=== PATIENT | male | born 1970 | race Caucasian/White ===

== ENCOUNTER 2017-05-05 08:05 | Outpatient (CLI) | payer BC ==
--- NOTE | 2017-05-05 10:19 | MRI ---
EXAM: MRI LUMBAR SPINE WITH AND WITHOUT CONTRAST: HISTORY: Right hip pain. COMPARISON: None. TECHNIQUE: Lumbar spine MRI is performed with and without intravenous Gadolinium administration. Multisequentia l, multiplanar imaging is performed. FINDINGS: Appropriate T1 marrow signal intensity of the lumbar vertebrae. Lumbar spine vertebral body height i s maintained. There is no fracture. There is an intrinsic T1 and T2 hyperintense lesion at the L3 l evel compatible with small hemangioma. Symmetric signal intensity of the psoas muscles. Appropriate signal intensity of the visualized ashley d organs. A small amount of nonspecific right perinephric fluid. Just inferior to the conus medullaris, there is a T2 mixed-signal intensity lesion with components of T2 hyperintensity. The T2 hyperintense component measures 1.4 cm anterior posterior x 1.6 cm mediol ateral x 2.7 cm craniocaudal. On the postcontrast images, there is enhancement associated along the periphery of the cystic component. The more solid component which is just inferior to the cystic com ponent has slightly heterogeneous enhancement. Overall, this mass measures 5.1 cm craniocaudal x 2.0 cm mediolateral x 1.8 cm anterior posterior. The mass abuts the conus and displaces nerve roots. T11-T12 and T12-L1: No high-grade central canal stenosis. No high-grade foraminal narrowing. L1-L2: No high-grade central canal stenosis. Neural foramen are patent. L2-L3: Adequate disk hydration. No significant central canal stenosis. Neural foramen are patent. L3-L4: Adequate disk hydration. No significant central canal stenosis. Foramen are patent. L4-L5: Adequate disk hydration. No significant central canal stenosis. Foramen are patent. L5-S1: Adequate disk hydration. No significant central canal stenosis. Neural foramen are patent. IMPRESSION: Intradural mass just inferior to the conus medullaris. Mass appears to abut the conus and displace ne rve roots. 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 Differential considerations include astrocytoma, epe ndymoma, or pterygoid glioma. Results of the study discussed with Dr. Blanco 05/05/17 at 9:55 a.m. JUAN CHOUDHURY POS: [facility]
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
== END 2017-05-05 08:06 | disposition home or self-care (01) ==
LOC: MRI 08:05
PROVIDERS: ATTEND Anesthesiology Pain Medicine
DX: M53.3 Sacrococcygeal disorders, not elsewhere classified (principal); M47.812 Spondylosis without myelopathy or radiculopathy, cervical region; M48.02 Spinal stenosis, cervical region; M99.51 Intervertebral disc stenosis of neural canal of cervical region; M89.9 Disorder of bone, unspecified
CPT/HCPCS: 72141; 72148

== ENCOUNTER 2017-06-17 09:00 | Outpatient (CLI) | payer BC ==
[2017-06-17 16:56] LABS: Hemoglobin 16.2 g/dL (14.0-18.0); Mean Corpuscular HGB CONC 34.5 g/dL (32.0-36.0); Mean Corpuscular Hemoglobin 31.5 pg (27.0-31.0); Mean Corpuscular Volume 91.2 fl (80.0-94.0); Mean Platelet Volume 7.2 fL (7.4-10.4); Platelet Count 285 thou/uL (130-400); RBC Distribution Width 11.8 % (11.5-14.5); Red Blood Cell (RBC) Count 5.14 mill/uL (4.70-6.10); White Blood Cell (WBC) Count 9.9 thou/uL (4.8-10.8)
[2017-06-17 17:06] LABS: INR-International Normal Ratio 1.1; Prothrombin Time 13.8 SEC (12.0-14.7)
== END 2017-06-17 09:01 | disposition home or self-care (01) ==
LOC: LABBT 09:00
PROVIDERS: ATTEND Neurological Surgery
DX: Z01.812 Encounter for preprocedural laboratory examination (principal); D33.4 Benign neoplasm of spinal cord
CPT/HCPCS: 85027; 85610; 85730; 93005; 93010

== ENCOUNTER 2017-06-17 16:00 | Inpatient (IN) | payer BC ==
--- NOTE | 2017-06-17 06:51 | HP ---
HISTORY OF PRESENT ILLNESS: Mr. Powers has been a patient of ours in the past for an evaluation of neck discomfort. He returns today with a new discovery of a lesion in the thoracolumbar spinal canal. He first reported back pain to his physician about 5-6 months ago and with physical therapy, things were improving. Unfortunately, the pain never went away and he was sent to Dr. Blanco for injection. The lumbar spine MRI revealed a lesion just up at the conus medullaris that led to an urgent referral to [facility]. Mr. Powers does not have radicular pain. There is no subjective numbness. There is no incontinence. He does not have a report of erectile dysfunction. The legs work well. He is ambulatory. The back pain seems to be worse when sitting and especially on the toilet. He stands for work and this feels much better. REVIEW OF SYSTEMS: A 10-point review of systems is negative, unless stated in the above HPI. PAST MEDICAL HISTORY: Hypertension, heartburn, and reflux. PAST SURGICAL HISTORY: The patient has an exploratory laparotomy, appendectomy in 2004, and sebaceous cyst removal. FAMILY HISTORY: Father is alive at 67 years old. Mother is alive at 65 years old, brain atrophy, diagnosed with hypertension. Siblings are alive. Children are alive. Son is alive. Daughter is alive. Paternal grandfather has , diagnosed with hypertension. Paternal grandmother , diagnosed with hypertension. SOCIAL HISTORY: The patient is a nonsmoker. He uses alcohol, no illicit drug use. 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 He is an ex-tobacco user, he quit 8 years ago. MEDICATIONS: 1. Montelukast sodium 10 mg tablet 1 tablet in the evening orally once a day. 2. Cyclobenzaprine 10 mg tablet 1 tablet as needed orally 3 times a day. 3. Hydrocodone/acetaminophen 7.5/325 mg tablet. 4. Tylenol Extra Strength 500 mg tablet 2 tablets as needed orally q.6 hours. 5. Ibuprofen 200 mg tablet 1 tablet with food or milk as needed orally 3 times a day. 6. Amlodipine/valsartan 5/40 mg tablet 1 tablet orally once a day. 7. Etodolac 500 mg tablet 1 tablet with food orally once a day. ALLERGIES: No known drug allergies. PHYSICAL EXAMINATION: NEUROLOGIC: Cranial nerves are intact. Cerebellar exam: There is no truncal ataxia. Gait and station are normal. Toe heel tandem walking is performed smoothly without weakness or apraxia. Motor exam: There is normal strength in the iliopsoas, quadriceps, hamstrings, gastroc, and toe flexors. Mild left anterior tib and EHL weakness. Sensory exam, some right L2 and right L5 altered sensation on the left. Reflex exam, both knees, brisk on the left, normal on the right. Ankle jerk brisk, 1-2 beat clonus on the right. IMAGING: MRI shows a contrast enhancing lesion below conus at L1. Cystic degenerations in the center of the lesion nerve roots to the right. Conus pushed upward and filum seems tethered. ASSESSMENT: Benign neoplasm of the spinal cord. Dr. Shah discussed laminectomy T12-L2 with tumor resection. The risks, benefits, alternatives, and the possible complication of surgery and benefits were discussed with the patient. The patient is fully aware of the risks, and he wants to proceed with the surgery. MERI
[2017-06-17 16:50] VITALS: BMI 34.1
[2017-06-26] MEDS ORDERED: CEFAZOLIN/Water 2 GM/20 ML SYRINGE ONE (06:11)
[2017-06-26] MEDS ORDERED: Thrombin 5000 UNITS/5 ML VIAL ONE ×3 (06:36→10:41)
[2017-06-26] MEDS ORDERED: Sodium Chloride 0.9% 20 ML ONE (06:36)
[2017-06-26] MEDS ORDERED: Bupivacaine/Epinephrine 0.25% 30 ML VIAL ONE (06:36)
[2017-06-26] MEDS ORDERED: Fentanyl 100 MCG/2 ML VIAL ONE ×5 (06:42→12:46)
[2017-06-26] MEDS ORDERED: Midazolam HCl 2 mg/2 ml Vial ONE (06:42)
[2017-06-26] MEDS ORDERED: Propofol 500 MG/50 ML VIAL ONE ×4 (07:22→11:29)
[2017-06-26] MEDS ORDERED: Phenylephrine 10 MG/NS 250 ML 0 ML ONE (08:30)
[2017-06-26] MEDS ORDERED: CEFAZOLIN 1 GM VIAL ONE (10:41)
[2017-06-26] MEDS ORDERED: Lidocaine 1% PF 5 ML VIAL ONE (10:41)
[2017-06-26] MEDS ORDERED: PROPOFOL 200 MG/20 ML VIAL ONE (10:41)
[2017-06-26] MEDS ORDERED: PHENYLEPHRINE-NS 100 MCG/ML 10 ML SYRINGE ONE (10:41)
[2017-06-26] MEDS ORDERED: Sterile Water 10 ML VIAL ONE (10:41)
[2017-06-26] MEDS ORDERED: Glycopyrrolate 0.2 MG/ML 5 ML SYRINGE ONE (10:41)
[2017-06-26] MEDS ORDERED: ePHEDrine/0.9% NaCl/PF SYRINGE 50 mg/10 ml ONE (10:41)
[2017-06-26] MEDS ORDERED: Dexamethasone 20 MG/5 ML VIAL ONE (10:41)
[2017-06-26] MEDS ORDERED: Phenylephrine 10 MG/NS 250 ML 250 ML ONE (11:38)
[2017-06-26] MEDS: Sodium Chloride 0.9% 1,000 ML IV SCH (12:00)
[2017-06-26] MEDS ORDERED: Acetaminophen/Codeine 30-300mg Tablet PO PRN (12:30)
[2017-06-26] MEDS ORDERED: Morphine 4 MG/ML Carpuject SLOW IVP PRN ×2 (12:30)
[2017-06-26] MEDS ORDERED: Milk Of Magnesia 30 ML UDCUP PO PRN (12:30)
[2017-06-26] MEDS ORDERED: Ondansetron HCl/PF 4 MG/2 ML Vial IVP PRN ×2 (12:30→12:36)
[2017-06-26] MEDS ORDERED: Promethazine HCl 25 MG/ML VIAL IM PRN (12:36)
[2017-06-26] MEDS ORDERED: Promethazine HCl 25 MG/ML VIAL SLOW IVP PRN (12:36)
[2017-06-26] MEDS ORDERED: HYDROmorphone 2 MG/ML VIAL SLOW IVP PRN (12:36)
[2017-06-26] MEDS ORDERED: Meperidine HCl/PF 25 MG/ML VIAL SLOW IVP PRN (12:36)
[2017-06-26] MEDS ORDERED: HYDROmorphone 0.5 MG/0.5 ML SYRINGE ONE ×2 (13:10→13:31)
[2017-06-26] MEDS: Cyclobenzaprine 10 MG TAB PO PRN ×2 (15:42→23:31)
[2017-06-26] MEDS: Acetaminophen/Codeine 30-300mg Tablet PO PRN ×3 (15:43→23:28)
[2017-06-26] MEDS: CEFAZOLIN/Water 2 GM/20 ML SYRINGE SLOW IVP SCH ×2 (15:46→21:01)
--- NOTE | 2017-06-26 16:21 | OP ---
DATE OF PROCEDURE: 06/26/2017 SURGEON: Darek Shah M.D. [employer] ASSEMBLER: Juarez Diaz PA-C PREOPERATIVE INDICATION: Make diagnosis, prevent neurological deterioration. PREOPERATIVE DIAGNOSIS: Intradural extramedullary lesion at T12-L2. POSTOPERATIVE DIAGNOSIS: Intradural extramedullary lesion at T12 L2. OPERATIVE PROCEDURES: Decompressive laminectomy, T12, L1, L2 durotomy and microsurgical resection of intradural tumor, operating microscope. PREOPERATIVE MEDICATIONS: Ancef 2 grams IV. DRAIN NUMBER: Zero. DRAIN TYPE: None. OPERATIVE DICTATION: The patient was brought to the operating room. General endotracheal anesthesia was induced. The patient was positioned prone on the operating table with his chest and hips suppor josephine by gel-filled chest rolls. Monitoring lines were placed for SSEP, MEP and EMG monitoring during the case. Using a lateral fluoro and radiograph, we planned our incision. The thoracolumbar skin wa s sterilely prepped and draped, and we opened with a 10 blade knife. We controlled bleeding with bip olar and monopolar cautery. We used monopolar cautery to dissect through subcutaneous tissues to the thoracodorsal fascia. We incised the fascia in the midline and reflected the paraspinal muscles off the spinous process and lamina of T12, L1, and L2. A lateral fluoro radiograph confirmed the levels upon which we were operating. We then used Adson and Kerrison rongeurs to remove the entire lamina of T12, L1, and 80% of the superior portion of the lamina of L2. We widened our laminectomy defect u ntil we were flush with the pedicles. We controlled epidural bleeding with gentle bipolar cautery an d waxed the bone edges. We then brought the operating microscope in the field. Under microscopic magnification using microsurgical techniques, we carefully opened the dura. With t he dura open, we could easily visualize the tumor within the area of the cauda equina. We tacked the dural opening to the muscle on either side and then we began our microdissection of the tumor. We c arefully freed it from all the nerve roots. We found it attached superiorly to the bottom of the con us medullaris and inferiorly to the filum terminale. While it is lateral aspect of the tumor, we dis sected free the arachnoid and all nerve roots. We stimulated the attachment superior to the tumor an d the filum terminale inferior, and none of the stimulation of those areas resulted in any EMG activi ty. We carefully stimulated lumbar nerve roots until we could easily identify the right and left L5 motor roots, the right and left S1 motor roots and the sacral roots to the sphincter on either side. These were not part of the attachments of the tumor. We then carefully coagulated between the tumor and the conus and sectioned here sharply. Inferiorly, we coagulated the filum terminale and section ed down. The tumor was removed in a single specimen and sent to pathology. We irrigated copiously w ith bacitracin irrigation and the spinal canal. 100 mL of warm irrigant was used. Hemostasis was ex cellent within the canal. We then closed the dura with 6-0 Prolene in a running fashion. A Valsalva maneuver was administered and there was a small area of CSF egress from one of the tackup suture hol es on the left side. We reinforced this area with a 6-0 Prolene and a pledget of muscle. A second V alsalva was administered and there was no gross CSF leak at all. We irrigated copiously with bacitra madalyn irrigation. We controlled lateral epidural vein with gentle bipolar cautery. We waxed the bone edges once again. We irrigated the wound with bacitracin irrigation and infused local anesthetic in the paraspinal muscles. We applied DuraSeal tissue sealant over a dural closure to reinforce it, and we closed the wound in anatomic layers over vancomycin powder. We applied a sterile dressing. This was a clean case and no contamination.
[2017-06-26] MEDS: traMADol HCl 50 MG TAB PO PRN (20:47)
[2017-06-26] MEDS: Montelukast Sodium 10 mg Tablet PO SCH (20:49)
[2017-06-27] MEDS: Sodium Chloride 0.9% 1,000 ML IV SCH ×4 (03:13→20:03)
--- NOTE | 2017-06-27 07:20 | PRG ---
DATE OF SERVICE: 06/27/2017 SUBJECTIVE: Mr. Powers is a 46-year-old male who I saw in his room this morning. Overnight, his jose manuel l signs have been stable. There have been no new neurologic deficits on exam. He is able to move wi th no focal motor or sensory deficits in his upper or lower extremities. Sensation to the saddle are a is normal. Today, we will advance his diet, he can have a regular diet and would like to see him g et up and ambulate as much as possible as well as urinate and have bowel movement. Yesterday, postop eratively, he had some headaches; however, those are starting to resolve this morning. His pain is w ell controlled with oral pain medication. This morning, we are going to lift his head of bed to 30 d egrees for 2 hours. If he does not develop a headache, he can work with the nurse and ambulate in e ayon. If there are any further questions, please feel free to contact Neurosurgery.
[2017-06-27] MEDS: Amlodipine 5 MG TAB PO SCH (07:30)
[2017-06-27] MEDS: Acetaminophen/Codeine 30-300mg Tablet PO PRN ×5 (07:45→23:49)
[2017-06-27] MEDS: traMADol HCl 50 MG TAB PO PRN ×4 (08:52→22:09)
[2017-06-27] MEDS: Cyclobenzaprine 10 MG TAB PO PRN ×2 (11:33→19:58)
[2017-06-27] MEDS: Fluticasone Propionate Nasal Spray 16 gm Bottle NASAL SCH (18:11)
[2017-06-27] MEDS: Montelukast Sodium 10 mg Tablet PO SCH (19:59)
[2017-06-28] MEDS ORDERED: Polyethylene Glycol 3350 17 GM Packet PO PRN (01:24)
[2017-06-28] MEDS ORDERED: Polyethylene Glycol 3350 17 GM Packet PO SCH (01:30)
[2017-06-28] MEDS: Acetaminophen/Codeine 30-300mg Tablet PO PRN ×3 (04:39→11:44)
[2017-06-28] MEDS: Cyclobenzaprine 10 MG TAB PO PRN ×2 (04:39→12:35)
[2017-06-28] MEDS: Amlodipine 5 MG TAB PO SCH (08:10)
[2017-06-28] MEDS: Fluticasone Propionate Nasal Spray 16 gm Bottle NASAL SCH (08:11)
[2017-06-28] MEDS: traMADol HCl 50 MG TAB PO PRN ×2 (09:45→18:14)
[2017-06-28] MEDS: Sodium Chloride 0.9% 1,000 ML IV SCH ×2 (11:46→20:30)
[2017-06-28] MEDS ORDERED: SOAP SUD ENEMA PR PRN (11:55)
[2017-06-28] MEDS ORDERED: Magnesium Citrate 300 ML BOT PO SCH (12:00)
--- NOTE | 2017-06-28 12:29 | PRG ---
DATE OF SERVICE: 06/28/2017 Mr. Powers is now 2 days postoperative lumbar ependymoma resection with Dr. Shah. He has some mi nimal back pain this morning, but really the biggest complaint is that of abdominal pain from constip ation. He has yet to have a bowel movement since before surgery. He has also had trouble with urina ry retention and a Alvarez was placed again last night. He is in obvious discomfort at bedside right n ow. The plan will be to add mag citrate x1 and then p.r.n. soapsuds enema as needed to help promote bowel movement. I feel as soon as he has a large bowel movement he will likely be able to urinate ea sier and his comfort level will be much better. If we can get him to pass stool and get him to mobil ize more later today he can go home with or without a Alvarez catheter in place.
[2017-06-28] MEDS: Montelukast Sodium 10 mg Tablet PO SCH (20:31)
[2017-06-29] MEDS: Cyclobenzaprine 10 MG TAB PO PRN ×3 (00:29→16:53)
[2017-06-29] MEDS: Sodium Chloride 0.9% 1,000 ML IV SCH ×2 (06:01→15:16)
[2017-06-29] MEDS: Acetaminophen/Codeine 30-300mg Tablet PO PRN ×5 (06:02→20:02)
[2017-06-29] MEDS: Fluticasone Propionate Nasal Spray 16 gm Bottle NASAL SCH (08:58)
[2017-06-29] MEDS: Amlodipine 5 MG TAB PO SCH (08:59)
[2017-06-29] MEDS ORDERED: Magnesium Citrate 300 ML BOT PO PRN (11:00)
[2017-06-29] MEDS: traMADol HCl 50 MG TAB PO PRN (14:12)
--- NOTE | 2017-06-29 16:08 | PRG ---
DATE OF SERVICE: 06/29/2017 Mr. Powers is now postop day #3 following ependymoma resection with Dr. Shah. He still unfortuna tely has not had a significant bowel movement; at least this morning though he has had a small bowel movement and some flatus, which I think is a big improvement from yesterday. He still has some abdom inal pain which is again I think all related to his constipation. We have dialed back his pain medic ations. We will keep his fluids high. He still has the Alvarez in which I think is okay for the time being. His incision looks to be well approximated and dry. No drainage. Steri-Strips are still in place and intact. He does have some increased pain which I think is more related to the fact that we have dailed his pain medications back secondary to his constipation. I think at this time, he has h ad another dose of MiraLax this morning. We will continue to monitor and follow it, I think it would be acceptable if he still has not gone in a few more hours to give him a second dose of mag citrate and hopefully obtain a good bowel movement at that point. As soon as he has a large bowel movement, we can remove the Alvarez in trials to see if he can urinate on his own, and if so he can go home as ea rly as this afternoon and then we will anticipate outpatient followup. Until then, we will continue to monitor his progress.
--- NOTE | 2017-06-29 17:56 | RAD ---
SUPINE ABDOMEN: History: Constipation. Comparison: None. FINDINGS: There is prominent stool in the right colon. There is gaseous dilatation of the colon. There is loss of haustral markings which could represent chronic laxative abuse. There is scattered small bowel gas which appears nonspecific with mild small bowel distention. IMPRESSION: Prominent stool in the right colon. Abnormal gaseous distention of the colon and there is nonspecific small gas noted on this one view exam. POS: [facility]
[2017-06-29] MEDS: Montelukast Sodium 10 mg Tablet PO SCH (20:02)
[2017-06-30] MEDS: Cyclobenzaprine 10 MG TAB PO PRN ×2 (00:42→08:42)
[2017-06-30] MEDS: Sodium Chloride 0.9% 1,000 ML IV SCH ×2 (01:24→11:59)
[2017-06-30] MEDS: Acetaminophen/Codeine 30-300mg Tablet PO PRN ×3 (04:05→15:23)
--- NOTE | 2017-06-30 06:40 | PRG ---
DATE OF SERVICE: 06/30/2017 NEUROSURGERY PROGRESS NOTE SUBJECTIVE: Mr. Powers had some soreness over the weekend and has troubled with some constipation. H e is passing gas. He is up and out of bed, already walking this morning. A Alvarez is in place. He i s getting IV fluids still. On examination, I do not find any new neurological deficits. We are now going to take the Alvarez out today. We are going to hep-lock his IV. We are going to have him ambulate a significant amount. If he is passing gas and voiding spontaneously, he can be discha rged home. We were continuing the IV antibiotics for skin infection on the flank and in other words, he has had a boil/abscess come and go over the past number of months. We will continue on oral anti biotics at home. Mr. Powers is doing exceptionally well after his spinal tumor resection. We are awaiting final pathol ogy and to make plans on adjuvant treatment thereafter.
--- NOTE | 2017-06-30 06:42 | PRG ---
DATE OF SERVICE: 06/30/2017 Mr. Powers is a 46-year-old male who I saw in his room this morning. He is status post from a thoraco lumbar laminectomy and removal of tumor. Over the weekend he became very constipated and x-ray of th e abdomen showed prominence in the right colon and abnormal gaseous distention of the colon. There i s nonspecific gas noted in the one exam. General Surgery has been consulted to review this. He has been afebrile; however, at 8:00 p.m. yesterday evening he had a temperature of 100.6. He continues t o ambulate 5-6 times a day and he still has a Alvarez in place. Today we will discontinue the Alvarez an d continue to ambulate as much as possible. He will try to have a bowel movement and is if that happ ens, he can be discharged from the hospital. If there are any further questions, please feel free to contact Neurosurgery.
[2017-06-30] MEDS: traMADol HCl 50 MG TAB PO PRN ×2 (06:48→14:14)
[2017-06-30] MEDS: Amlodipine 5 MG TAB PO SCH (08:42)
[2017-06-30] MEDS: Fluticasone Propionate Nasal Spray 16 gm Bottle NASAL SCH (08:44)
[2017-06-30 12:29] VITALS: BP 131/86; TEMP 98.6
--- NOTE | 2017-07-01 15:36 | DIS ---
DATE OF ADMISSION: 06/26/2017 DATE OF DISCHARGE: 06/30/2017 ADMISSION DIAGNOSIS: Intradural extramedullary lesion at T12-L2. DISCHARGE DIAGNOSIS: Intradural extramedullary lesion at T12-L2. The patient is stable and has been able to urinate and have bowel movements. DISCHARGE CONDITION: The patient is stable. He is able to ambulate. CONSULTATIONS: Physical Therapy and General Surgery. PROCEDURES: Decompressive laminectomy at V91-S2-T8 durotomy and microsurgical resection of dural cristina or, operative microscope. BRIEF HISTORY OF PRESENT ILLNESS: Mr. Powers is a 46-year-old male, who presented to our office with thoracic back pain. He had signs of myelopathy. He has been through physical therapy and things wer e starting to improve, but he does not find permanent relief. There is no subjective numbness. He h as no incontinence. He has a lesion that was found on MRI at thoracolumbar spinal canal as reported. HOSPITAL COURSE: During his hospital course, there were no acute events. He is able to urinate, amb ulate in the ayon, tolerate regular diet. His pain is well controlled with pain medication. He was able to have a bowel movement before he left the hospital. ACTIVITY: The patient can have regular activity with restrictions of bending over and lifting more t schmidt 15 pounds. PHYSICAL EXAMINATION: VITAL SIGNS: Stable on discharge. HEENT: Normocephalic, atraumatic. Hearing intact. Moist mucous membranes. Trachea is midline. Ey es: Pupils are equal and reactive to light. Extraocular muscles are intact. Sclerae is white, calixto cteric. RESPIRATORY: The patient has bilateral symmetric chest rise. He has no shortness of breath. MUSCULOSKELETAL: The patient has 5/5 strength in bilateral lower extremities, normal pulses. Sensat ion and motor is intact in the lower and upper extremities. NEUROLOGIC: Cranial nerves II through XII are grossly intact. He answers my questions appropriately . DIET: The patient can have a regular diet. MEDICATIONS: Please see home medication discharge list.
== END 2017-06-30 16:51 | disposition home or self-care (01) | DRG 30 ==
LOC: SURG A 06-26 05:44 → SJJU 06-26 13:04
PROVIDERS: ADMIT Neurological Surgery; ATTEND Neurological Surgery
PROC: 00BY0ZX Excision of Lumbar Spinal Cord, Open Approach, Diagnostic (ICD-10-PCS; principal; 2017-06-26)
PROC: 01N80ZZ Release Thoracic Nerve, Open Approach (ICD-10-PCS; 2017-06-26)
PROC: 01NB0ZZ Release Lumbar Nerve, Open Approach (ICD-10-PCS; 2017-06-26)
DX: D33.4 Benign neoplasm of spinal cord (principal); I10 Essential (primary) hypertension; N52.9 Male erectile dysfunction, unspecified; K21.9 Gastro-esophageal reflux disease without esophagitis; Z87.891 Personal history of nicotine dependence; K59.00 Constipation, unspecified; R33.9 Retention of urine, unspecified
CPT/HCPCS: 74018; 76001; 88309; 88325; 88331; 88334; 88341; 88342; 88360; A4216; G8978-GP-CK; G8979-GP-CI; J0690; J1100; J1170; J2001; J2250; J2270; J2704; J3010; J3370; J3490

== ENCOUNTER 2017-08-29 15:30 | Inpatient (IN) | payer BC ==
--- NOTE | 2017-09-01 10:20 | HP ---
HISTORY OF PRESENT ILLNESS: Mr. Powers has had a T12-L2 resection of an intradural tumor on 8. Pathology revealed myxopapillary ependymoma. His recovery has been quite well and there is no ne w chronic dysfunction. Two weeks after the microsurgical resection of tumor he noticed onset of swel ling around the operative site. The swelling got worse with standing for long periods. The first th ing in the morning and lying flat. There is enough pressure added that he feels some burning in the legs. He was worried about infection at first, but there was no fevers, sweats, chills, redness, or purulent drainage. REVIEW OF SYSTEMS: Ten-point review of systems completed, is otherwise negative unless stated in abo ve HPI. PAST MEDICAL HISTORY: Hypertension, heartburn, reflux. PAST SURGICAL HISTORY: Includes T12-L2 resection of intradural tumor. PHYSICAL EXAMINATION: HEENT: Normocephalic, atraumatic. Hearing intact. Moist mucous membranes. NECK: Trachea is midline. EYES: Pupils equal and reactive to light. Extraocular muscles are intact. Sclerae is white, nonict ondina. CARDIOVASCULAR: The patient has regular rate and rhythm, normal S1, S2 heart sounds, no distal cyano sis or clubbing noted. RESPIRATORY: The patient has bilateral symmetric chest rise. Appears to have no shortness of breath . NEUROLOGIC: Gait and station are normal. Motor strength, there is normal strength in the iliopsoas, quadriceps, hamstrings, anterior tibialis, extensor hallus longus and toe flexors. Sensory exam: There is some numbness to the right lateral thigh. SPINE: Collection of CSF, no redness at all. No severe tenderness. ASSESSMENT: 1. Spinal cord tumor 2. Benign neoplasm of the spinal cord. 3. Cerebrospinal fluid leak. PLAN: Pseudomeningocele, body likely to heal this, but if there is any neurosurgical trouble we coul d close intraoperatively. Dr. Shah left it up to the patient whether we want to do a surgical c losure of the dura. There has been worsening leg burning and mild decline and weakness since he has been assessed and he opted for neurosurgical closure of the dura. We may need a repair of the dura, possible fascia nelson graft intraoperatively. If there are further questions, please feel free to co ntact Neurosurgery.
[2017-09-04] MEDS ORDERED: Fentanyl 100 MCG/2 ML VIAL ONE ×4 (05:47→15:57)
[2017-09-04] MEDS ORDERED: Midazolam HCl 2 mg/2 ml Vial ONE ×2 (05:47→05:48)
[2017-09-04] MEDS ORDERED: CEFAZOLIN/Water 2 GM/20 ML SYRINGE ONE ×2 (06:13→12:12)
[2017-09-04] MEDS ORDERED: Bupivacaine HCl 0.5%/Epinephrine 1:200,000/PF 30 ml Vial ONE (06:18)
[2017-09-04] MEDS ORDERED: Sodium Chloride 0.9% 10 ML ONE (06:18)
[2017-09-04] MEDS ORDERED: Thrombin 5000 UNITS/5 ML VIAL ONE (06:18)
[2017-09-04] MEDS ORDERED: Fentanyl 250 MCG/5 ML VIAL ONE (12:06)
[2017-09-04] MEDS ORDERED: Midazolam HCl 5 mg/5 ml Vial ONE (12:26)
[2017-09-04] MEDS ORDERED: Promethazine HCl 25 MG/ML VIAL IM PRN (14:08)
[2017-09-04] MEDS ORDERED: HYDROmorphone 2 MG/ML VIAL SLOW IVP PRN (14:08)
[2017-09-04] MEDS ORDERED: Meperidine HCl/PF 25 MG/ML VIAL SLOW IVP PRN (14:08)
[2017-09-04] MEDS ORDERED: Promethazine HCl 25 MG/ML VIAL SLOW IVP PRN (14:08)
[2017-09-04] MEDS ORDERED: Ondansetron HCl/PF 4 MG/2 ML Vial IVP PRN ×2 (14:08→14:32)
[2017-09-04] MEDS ORDERED: Morphine Sulfate 2 MG/ML SYRINGE SLOW IVP PRN (14:08)
[2017-09-04] MEDS ORDERED: Acetaminophen/Codeine 30-300mg Tablet PO PRN (14:32)
[2017-09-04] MEDS ORDERED: Morphine 4 MG/ML VIAL SLOW IVP PRN (14:45)
[2017-09-04] MEDS: Morphine 4 MG/ML VIAL SLOW IVP PRN ×2 (17:31→22:42)
[2017-09-04 18:09] VITALS: BMI 33.6
[2017-09-04] MEDS: Sodium Chloride 0.9% 1,000 ML IV SCH (18:44)
[2017-09-04] MEDS: Acetaminophen/Codeine 30-300mg Tablet PO PRN ×2 (18:48→21:31)
[2017-09-04] MEDS: Cyclobenzaprine 10 MG TAB PO PRN (18:48)
--- NOTE | 2017-09-04 19:31 | OP ---
DATE OF PROCEDURE: 09/04/2017 SURGEON: Salomon Shah M.D. EMPLOYMENT MANAGER: Juarez Diaz PA-C PREOPERATIVE INDICATION: Prevent neurological deterioration. PREOPERATIVE DIAGNOSIS: Pseudomeningocele, status post spinal cord tumor resection 2 months ago. POSTOPERATIVE DIAGNOSIS: Pseudomeningocele, status post spinal cord tumor resection 2 months ago. OPERATIVE PROCEDURE: Reopening thoracolumbar incision, exploration of pseudomeningocele, repair of d ura, operating microscope. PREOPERATIVE MEDICATIONS: Ancef 2 grams IV. DRAIN NUMBER: Zero. DRAIN TYPE: None. OPERATIVE DICTATION: The patient was brought to the operating room. General endotracheal anesthesia was induced. The patient was positioned prone on gel-filled chest rolls and his thoracolumbar incis ion was identified. We removed hair from the side to the left thigh preparing for fascia nelson graft if needed. The thoracolumbar skin and the left thigh were sterilely prepped and draped. We reopened her thoracolumbar incision with a 10 blade knife. CSF cavity was entered immediately under the derm is, clear fluid emanated. This connected with a fluid collection under the paraspinal muscles by tra cking down over the remaining lumbar spinous process inferior to our dura opening. Therefore, we cou ld dissect the paraspinal muscles easily off the lamina of the lower lumbar vertebrae as well as the thoracic vertebrae above. We incised the paraspinal muscles in the midline and expose a fluid collec tion posterior to the dura. We took a culture swab and swab the paraspinal fluid collection even tho ugh there is no evidence of purulence. We then brought the operative microscope into the field. Under microscopic magnification and using microsurgical techniques, we carefully inspected the dura. The suture line down the midline was tightly sealed, pledget of muscle that we used to reinforce one area of CSF leak was tightly sealed, inferior and superior knots were tight. We took a few bites of a Kerrison superiorly and inferiorly to extend our laminectomy and inspect dura superiorly and infer iorly and there was no dural laceration there. We used a right-angle probe to probe for any sharp penelope ny elements in the lateral aspect of our laminectomy defects and there were none. We administered a Valsalva maneuver while inspecting multiple areas of the dura and saw no CSF egress, whatsoever. We k ept moving our operating microscope in the stepwise fashion throughout the entire exposure of the dur a, administering a Valsalva and moving to another area and still saw no CSF egress. There was a davon le bit of moisture inferiorly, but this was mostly blood from paraspinal muscles and bone. We electe d not to reopen the dura and reclose it as the closure would have been no better than what we were se en. We then irrigated with bacitracin irrigation. We brought DuraSeal tissue sealant into the field . We spread this over the opening in the dura as our dural closure in case there are microscopic are as through which CSF could emanate that were invisible. We applied vancomycin powder to the wound. We closed the wound in anatomic layers in a watertight fashion and we applied a sterile dressing. Th is is a clean case and no contamination.
[2017-09-04] MEDS: CEFAZOLIN/Water 2 GM/20 ML SYRINGE SLOW IVP SCH (20:01)
[2017-09-05] MEDS: Acetaminophen/Codeine 30-300mg Tablet PO PRN (00:44)
[2017-09-05] MEDS: Cyclobenzaprine 10 MG TAB PO PRN (02:48)
[2017-09-05] MEDS: Morphine 4 MG/ML VIAL SLOW IVP PRN ×3 (02:50→08:36)
[2017-09-05] MEDS: CEFAZOLIN/Water 2 GM/20 ML SYRINGE SLOW IVP SCH ×2 (04:54→05:20)
[2017-09-05] MEDS: Sodium Chloride 0.9% 1,000 ML IV SCH ×2 (04:54→18:02)
[2017-09-05] MEDS ORDERED: Fentanyl 100 MCG/2 ML VIAL SLOW IVP SCH (05:30)
[2017-09-05] MEDS ORDERED: tiZANidine HCl 4 MG TAB PO PRN (08:39)
[2017-09-05] MEDS: traMADol HCl 50 MG TAB PO PRN ×3 (08:43→17:04)
--- NOTE | 2017-09-05 09:06 | PRG ---
DATE OF SERVICE: 09/05/2017 Mr. Powers is now postoperative day 1 having a wound exploration for possible CSF leak. Dr. Shah performed the procedure and there was no evidence of CSF leak. Currently, the patient complains of significant low back pain which he states is previously controlled with tramadol. He has no leg comp laints. He has no headache. He has not been yet out of bed. He has good strength in the bilateral upper and bilateral lower extremities and his incision is dressed and the dressing appears to be dry. At this time we will have the patient's head of bed at 15 for an hour, 30 degrees for an hour and t hen activity as tolerated if no headache. The plan is to send him home later this afternoon as long as his back pain is under better control. The patient is agreeable to this and actually would like to go home later today. But again, we will get his back pain under better control. I have ordered tramadol, tizanidine, and Harrison to see if thi s will also help with his pain as he states the morphine is not improving his pain. We will check ba ck later this afternoon. Please call with any questions.
[2017-09-05] MEDS: HYDROcodone/Acetaminophen 5/325 mg Tablet PO PRN ×3 (09:42→18:02)
[2017-09-05 16:01] VITALS: BP 118/87; TEMP 99.6
== END 2017-09-05 18:50 | disposition home or self-care (01) | DRG 30 ==
LOC: SURG A 09-04 05:40 → SURG B 09-04 14:32
PROVIDERS: ADMIT Neurological Surgery; ATTEND Neurological Surgery
PROC: 00JV0ZZ Inspection of Spinal Cord, Open Approach (ICD-10-PCS; principal; 2017-09-04)
DX: G96.19 Other disorders of meninges, not elsewhere classified (principal); I10 Essential (primary) hypertension; K21.9 Gastro-esophageal reflux disease without esophagitis
CPT/HCPCS: 87070; 87205; 96374; A4216; J0131; J0670; J2250; J2270; J3010; J3370; J3490

== ENCOUNTER 2017-08-29 15:47 | Outpatient (CLI) | payer BC ==
[2017-08-29 17:05] LABS: Hemoglobin 15.8 g/dL (14.0-18.0); Mean Corpuscular HGB CONC 34.2 g/dL (32.0-36.0); Mean Corpuscular Hemoglobin 30.1 pg (27.0-31.0); Mean Corpuscular Volume 88.1 fl (80.0-94.0); Mean Platelet Volume 7.2 fL (7.4-10.4); Platelet Count 272 thou/uL (130-400); RBC Distribution Width 11.9 % (11.5-14.5); Red Blood Cell (RBC) Count 5.23 mill/uL (4.70-6.10); White Blood Cell (WBC) Count 8.3 thou/uL (4.8-10.8)
[2017-08-29 17:22] LABS: INR-International Normal Ratio 1.1; PTT 31.6 SEC (22.9-36.1); Prothrombin Time 13.8 SEC (12.0-14.7)
--- NOTE | 2017-09-01 18:20 | EKG ---
Test Reason : Blood Pressure : / mmHG Vent. Rate : 086 BPM Atrial Rate : 086 BPM P-R Int : 144 ms QRS Dur : 102 ms QT Int : 372 ms P-R-T Axes : 037 065 007 degrees QTc Int : 445 ms Sinus rhythm with occasional Premature ventricular complexes Otherwise normal ECG When compared with ECG of 17-JUN-2017 16:34, Premature ventricular complexes are now Present Confirmed by SUNNY SISM, DR. Link ([id number]) on 09/01/2017 6:20:32 PM Referred By: YOVANI Confirmed By:DR. Nikolay CORREA MD
== END 2017-08-29 15:48 | disposition home or self-care (01) ==
LOC: LABBT 15:47
PROVIDERS: ATTEND Neurological Surgery
DX: Z01.812 Encounter for preprocedural laboratory examination (principal); G96.19 Other disorders of meninges, not elsewhere classified
CPT/HCPCS: 85027; 85610; 85730; 93005; 93010

== ENCOUNTER 2017-09-01 12:41 | Outpatient (CLI) | payer BC ==
--- NOTE | 2017-09-01 16:04 | MRI ---
MRI OF THE THORACIC SPINE WITHOUT CONTRAST: Date: 09-01-17 Comparison: None. History: Evaluate fluid build-up from laminectomy in June 2017, pseudomeningocele, burning sensati on in legs when lying down. Technique: Multiplanar, multisequence MR imaging of the thoracic spine provided without contrast. FINDINGS: The sagittal STIR imaging demonstrates no focal area of osseous marrow edema. There is an incompletely imaged fluid collection within the posterior epidural space which follows th e signal intensity of CSF on all pulse sequences. This is better assessed on lumbar spine MRI. There is a fluid collection of similar signal intensity within the subcutaneous fat in the midline lower th oracic/upper lumbar region. Findings are most consistent with incompletely imaged CSF collection in t he posterior epidural space and subcutaneous fat on the basis of pseudomeningocele. There is mild ass ociated mass effect on the conus medullaris which is slightly displaced anteriorly. There is no anterolisthesis or retrolisthesis seen within the thoracic spine. There is no focal area of abnormal signal intensity identified within the thoracic cord. There is no significant central can al or neural foraminal stenosis noted within the thoracic spine. Incidental note is made of a 1.9 cm heterogeneously hyperintense nodule associated with the posterior aspect of the left thyroid lobe. IMPRESSION: 1. Incompletely visualized posterior epidural fluid collection involving the lower thoracic region ex tending into the lumbar region. This extends into the subcutaneous soft tissues and will be better as sessed on the lumbar spine MRI. This is most consistent with posterior epidural CSF collection and as sociated pseudomeningocele. 2. T2 hyperintense lesion in the region of the left aspect of the thyroid for which dedicated thyroid ultrasound advised. POS: [facility]
--- NOTE | 2017-09-01 18:00 | MRI ---
LUMBAR SPINE MRI WITHOUT CONTRAST: Date: 09-01-17 Comparison: 05-05-17 History: Evaluate fluid buildup following laminectomy in June 2017. Technique: Multiplanar, multisequence MR imaging of the lumbar spine obtained without contrast. FINDINGS: The prior examination demonstrated a heterogeneous mass lesion inferior to the conus medullaris withi n the thecal sac at the L1 and L2 levels. Evaluation for residual lesion is slightly limited without contrast media, but there is no evidence for a residual mass in this region. Five lumbar type vertebr al bodies are present with the conus medullaris terminating at the T12-L1 level. There is a posterior epidural fluid collection measuring 7.7 cm in craniocaudal dimension, 1.5 cm in AP dimension, and 2.1 cm in transverse dimension extending from axial level of T12 vertebral body to axial level of L2-3 intervertebral disc space. This displaces the distal aspect of the cord/conus med ullaris and nerve roots of the cauda equina anteriorly. Bilateral laminectomy changes are present from the T12 level through the L2 level. The posterior epid ural fluid collection follows CHF signal intensity on all pulse sequences. There is a subcutaneous fl uid collection as well, also following CSF signal intensity on all pulse sequences, measuring 13.1 c m craniocaudal dimension, 2.6 cm AP dimension, and 5.2 cm transverse dimension. On sagittal image 9 o f T2 and STIR imaging there appears to be a thin linear communication between the posterior epidural collection and the subcutaneous fluid collection. Findings suggest large CSF collection/pseudomeningo angélica. T12-1: Intervertebral disc height and signal intensity is within normal limits. There is mild central canal stenosis on the basis of anterior displacement of conus medullaris and nerve roots of cauda eq uina associated with above described posterior epidural fluid collection. No significant neural gary inal stenosis. L1-2: Intervertebral disc height and signal intensity is within normal limits. Minimal central canal stenosis on the basis of posterior epidural fluid collection. No significant neural foraminal stenosi s. L2-3: Mild bilateral facet hypertrophy. Intervertebral disc height and signal intensity is within nor mal limits with no significant central canal or neural foraminal stenosis. L3-4: Intervertebral disc height and signal intensity is within normal limits with no significant crista tral canal or neural foraminal stenosis. L4-5: Intervertebral disc height and signal intensity within normal limits. No significant central ca nal or neural foraminal stenosis. L5-S1: Intervertebral disc height and signal intensity within normal limits with no significant centr al canal or neural foraminal stenosis. There is a T2 hyperintense lesion emanating from the lower pole of the right kidney measuring in the 1.6 cm range, likely representing a renal cyst. IMPRESSION: Posterior epidural fluid collection with thin connection to an additional fluid collection centered w ithin the subcutaneous soft tissues of lumbar spine and lower thoracic spine. Findings suggest a CSF collection within the posterior epidural space and pseudomeningocele extending into the soft tissues as detailed. POS: AREN
== END 2017-09-01 12:42 | disposition home or self-care (01) ==
LOC: TBSIIMAG 12:41
PROVIDERS: ATTEND Neurological Surgery
DX: G96.19 Other disorders of meninges, not elsewhere classified (principal)
CPT/HCPCS: 72146; 72148

== ENCOUNTER 2018-02-02 13:21 | Outpatient (CLI) | payer BC ==
[~2018-02-02 13:21] MED LIST: Gadobenate Dimeglumine 529 MG/1 ML (20ML VIAL) ONE
--- NOTE | 2018-02-02 15:59 | MRI ---
THORACIC SPINE MRI WITH AND WITHOUT CONTRAST: Date: 02/02/18 INDICATION: Benign neoplasm of spinal cord. COMPARISON: 09/01/17. FINDINGS: There is no pathologic intramedullary enhancement of the thoracic spinal cord. No abnormal cord expan diego. There is residual, partially imaged soft tissue signal abnormality posteriorly, at the site of prior abnormal fluid signal collection. No significant abnormal signal or pathologic enhancement iden tified within the confines of the vertebral canal. Multilevel moderate cervical spine degenerative change present. At the T10-11 level, there is a left paracentral through left subarticular disc protrusion with mild ventral CSF effacement. No significant, associated cord deformity. IMPRESSION: 1. No pathologic intramedullary signal abnormality or cord enhancement. 2. Residual soft tissue signal alteration, partially visualized, within the posterior paraspinous re gion at site of prior, large fluid signal intensity collection. POS: AREN
== END 2018-02-02 13:22 | disposition home or self-care (01) ==
LOC: TBSIIMAG 13:21
PROVIDERS: ATTEND Neurological Surgery
DX: D33.4 Benign neoplasm of spinal cord (principal); G96.19 Other disorders of meninges, not elsewhere classified; D49.7 Neoplasm of unspecified behavior of endocrine glands and other parts of nervous system
CPT/HCPCS: 72157; A9579

== ENCOUNTER 2020-03-08 09:23 | Outpatient (CLI) | payer BC ==
[~2020-03-08 09:23] MED LIST changes: -Gadobenate Dimeglumine 529 MG/1 ML (20ML VIAL) ONE; +Magnevist 469MG/ML 20 ML VIAL ONE
--- NOTE | 2020-03-08 15:08 | MRI ---
MRI LUMBAR SPINE WITH AND WITHOUT CONTRAST: DATE: 03/08/20 HISTORY: 49-year-old male with pseudomeningocele, G96.19 and spinal cord tumor, D49.7. Follow-up. COMPARISON: 02/01/19 TECHNIQUE: Multiple sequences obtained in axial and sagittal planes, pre and post IV injection of gadolinium-bas ed contrast agent. FINDINGS: Five lumbar type vertebrae. Vertebral body heights and disc spaces are maintained. No spondylolisthes is. Again noted is the wide midline laminectomy defect from T12 through L2-3. No recurrent pseudomeni ngocele. No recurrent or residual spinal neoplasm. Conus medullaris terminates at L1. Caudal to the l evels of laminectomy, cauda equina is arranged in a symmetrical, normal distribution throughout the t hecal sac. No central spinal canal stenosis or neural foraminal stenosis at any level. No high grade degenerative disc changes at any level. Hemangioma of bone at L3 vertebral body. Otherwise, no abnor mal enhancement. No interval change overall. IMPRESSION: 1. Status post laminectomies at upper lumbar spine. 2. Otherwise negative. 3. No recurrent intraspinal neoplastic tumor, recurrent meningocele, or high grade degenerative changes. JN R POS: OFF
== END 2020-03-08 09:24 | disposition home or self-care (01) ==
LOC: TBSIIMAG 09:23
PROVIDERS: ATTEND Neurological Surgery
DX: G96.19 Other disorders of meninges, not elsewhere classified (principal); D49.7 Neoplasm of unspecified behavior of endocrine glands and other parts of nervous system; Z98.890 Other specified postprocedural states
CPT/HCPCS: 72158; A9579

== ENCOUNTER 2021-07-17 14:45 | Outpatient (CLI) | payer BC | END 2021-07-17 14:46 | disposition home or self-care (01) | LOC: TBSIIMAG 14:45 | PROVIDERS: ATTEND Neurological Surgery | DX: D49.7 Neoplasm of unspecified behavior of endocrine glands and other parts of nervous system (principal); Z98.890 Other specified postprocedural states | CPT/HCPCS: 72158 ==